=== PATIENT | female | born 1990 | race African-American/Black ===

== ENCOUNTER 2019-10-22 14:46 | Emergency (ER) | payer OTHER, SELFPAY ==
[2019-10-22 14:50] VITALS: BP 154/73; PULSE 92; RESP 16; TEMP 37.1; O2SAT 100
--- NOTE | 2019-10-22 15:30 | ED.GENADULT ---
HPI - General Adult General Chief complaint: Recheck/Abnormal Lab/Rx Stated complaint: weakness/dizziness Time Seen by Provider: 10/22/19 15:11 Source: patient History of Present Illness HPI narrative: Patient referred to our emergency room from [facility] because of vaginal bleeding for the last 12 months after having Depo shot 1 year ago. Patient reported having a break without vaginal bleeding which was May and June. Patient reported bleeding every day. Fresh red bright blood sometime with blood clots, lately been feeling tired and weak. Patient called the [facility] today tell them that SHE IS week and was told to go to the emergency room right away Related Data Home Medications Medication Instructions Recorded Confirmed meloxicam 10/22/19 Allergies Allergy/AdvReac Type Severity Reaction Status Date / Time Sulfa (Sulfonamide Allergy Severe Swelling Verified 10/22/19 15:19 Antibiotics) Coconut Allergy Severe Dyspnea / Uncoded 10/22/19 15:19 SOB Review of Systems Review of Systems: Narrative: CONSTITUTIONAL: Denies fever, chills, or sweats. EYES: Denies visual changes, redness, or discharge. ENT: Denies rhinorrhea, congestion, sore throat, or otalgia. CARDIOVASCULAR: Denies chest pain, palpitations, or edema. RESPIRATORY: Denies cough or dyspnea. GASTROINTESTINAL: Denies abdominal pain, nausea, vomiting, or diarrhea. GENITOURINARY: Denies dysuria or hematuria. SKIN: Denies rash or itching. MUSCULOSKELETAL: Denies back pain, joint pain, or myalgia. NEUROLOGIC: Denies headache, numbness, or weakness. PSYCHIATRIC: Denies anxiety or depression. [facility] Social History Social History Gender identity (if verbalized by the patient): Female Exam Narrative: Exam Narrative: General appearance: Well-developed, well-nourished Skin: Normal color Head: Normocephalic, nontraumatic Eyes: Clear conjunctiva ENT: Oropharynx normal, ears normal, nose normal Neck: Supple, nontender Chest and respiratory: Airway patent, no respiratory distress, no accessory muscle use Heart: Regular rate/rhythm Abdomen: Soft, nontender, no organomegaly, quiet bowel sounds Vascular: Normal peripheral pulses, normal capillary refill. Musculoskeletal: Normal range of motion, nontender back Neurologic: Alert and oriented ?3, [employer] is normal as tested, no gross motor deficit Course Course Emergency Course: Stable Reevaluation(s) Reevaluation #1: Patient feeling okay, denying any symptoms. Patient hemoglobin on December 2018 was 12.5, hemoglobin today is 12.9. No orthostatic hypotension, patient is okay to go home to follow-up with the [facility] [place] for further evaluation. Date: 10/22/19 Time: 17:32 Consultations Consultation #1: DR RONDON. IS okay patient can go home Date: 10/22/19 Time: 17:32 Vital Signs Vital signs: Vital Signs Temperature 37.1 C 10/22/19 14:50 Pulse Rate 92 10/22/19 14:50 Respiratory Rate 16 10/22/19 14:50 Blood Pressure 154/73 H 10/22/19 14:50 Pulse Oximetry 100 10/22/19 14:50 Temperature 37.1 C 10/22/19 14:50 Pulse Rate 72 10/22/19 15:51 Respiratory Rate 16 10/22/19 14:50 Blood Pressure 142/84 H 10/22/19 15:51 Pulse Oximetry 100 10/22/19 14:50 Medical Decision Making MDM Narrative Medical decision making narrative: Dysfunctional uterine bleeding, anemia are my concern. Labs, IV fluid, orthostatic blood pressure. Further plan to follow Vital Signs Vital Signs: Vital Signs Temperature 37.1 C 10/22/19 14:50 Pulse Rate 92 10/22/19 14:50 Respiratory Rate 16 10/22/19 14:50 Blood Pressure 154/73
[2019-10-22 15:50] LABS: Basophils Absolute Auto 0.1 K/mm3 (0.0-0.1); Basophils Percent Auto 0.8 % (0.2-1.2); Eosinophils Absolute Auto 0.2 K/mm3 (0-0.3); Eosinophils Percent Auto 1.7 % (0-4.4); Hematocrit 41.2 % (37.0-47.0); Hemoglobin 12.9 g/dL (12.0-15.0); Immature Granulocyte Absolute 0.03 K/mm3 (0.00-0.031); Immature Granulocyte Percent A 0.3 % (0-0.5); Lymphocytes Absolute Auto 2.42 K/mm3 (0.9-3.2); Lymphocytes Percent Auto 26.6 % (18.3-44.2); Mean Corpuscular HGB Conc 31.3 g/dl (32-36); Mean Corpuscular Hemoglobin 21.9 pg (26-34); Mean Corpuscular Volume 70.1 fl (80-100); Mean Platelet Volume 8.9 fl (7.4-10.4); Monocytes Absolute Auto 0.5 K/mm3 (0.1-0.6); Monocytes Percent Auto 5.2 % (2.6-8.5); Neutrophils Percent Auto 65.4 % (45.5-73.1); Platelet Count Result 389 k/mm3 (150-375); Red Blood Count 5.88 M/mm3 (4.2-5.4); Red Cell Distribution Width 15.4 % (11.5-14.5); White Blood Count 9.1 K/mm3 (4.5-10.0)
[2019-10-22 15:51] VITALS: BP 133/92; BP 137/88; BP 142/84; PULSE 72
[2019-10-22 16:09] LABS: Alanine Aminotransferase 18 U/L (4-35); Albumin Level 4.4 g/dL (3.5-5.1); Alkaline Phosphatase 93 U/L (38-126); Aspartate Amino Transferase 23 U/L (14-36); Bilirubin,Total 0.5 mg/dL (0.2-1.3); Blood Urea Nitrogen 10 mg/dL (7-17); Calcium 9.3 mg/dL (8.4-10.2); Carbon Dioxide 23 mmol/L (22-30); Chloride 108 mmol/L (98-107); Estimated CRCL calculation 125 ml/min; Estimated Glomerular Filt Rate > 60; Glucose 102 mg/dL (65-105); Potassium 3.9 mmol/L (3.4-5.0); Sodium 138 mmol/L (137-145)
== END 2019-10-22 17:45 | disposition home or self-care (01) ==
PROVIDERS: Emergency Provider Emergency Medicine; PCP Nurse Practitioner Family
DX: N93.8 Other specified abnormal uterine and vaginal bleeding (principal)
CPT/HCPCS: 36415; 80053; 85025; 86850; 86900; 86901; 99283

== ENCOUNTER 2021-04-16 17:55 | Emergency (ER) | payer OTHER, SELFPAY ==
[2021-04-16 18:16] VITALS: BP 109/69; PULSE 73; RESP 18; TEMP 37.2; O2SAT 100
--- NOTE | 2021-04-16 18:17 | ED.FEMALEGU ---
HPI - Female Genitourinary General Chief complaint: Vaginal Bleeding Stated complaint: Bleeding/pain Time Seen by Provider: 04/16/21 18:18 Source: patient, RN notes reviewed and old records reviewed Mode of arrival: ambulatory Limitations: no limitations History of Present Illness HPI Narrative: 31-year-old female presents to the [facility] after having multiple positive test and now started with bright red heavy bleeding since yesterday. States her last menstrual period was 12 March 2021. Patient reports severe right lower quadrant pain and having trouble walking upright. Denies nausea or vomiting. Denies chest pain Related Data Home Medications Medication Instructions Recorded Confirmed No Home Medications 04/16/21 04/16/21 Allergies Allergy/AdvReac Type Severity Reaction Status Date / Time Sulfa (Sulfonamide Allergy Severe Swelling Verified 04/16/21 18:22 Antibiotics) Coconut Allergy Severe Dyspnea / Uncoded 04/16/21 18:22 SOB Review of Systems Review of Systems: All systems reviewed & are unremarkable except as noted in HPI and below Constitutional: Constitutional: Reports no additional constitutional complaints, Denies chills and Denies fatigue Eyes: Eyes: Reports no additional eye complaints ENT: Reports system reviewed and no additional complaints, except as documented and Denies sore throat Cardiovascular: Cardiovascular: Reports no additional cardiovascular complaints and Denies chest pain Respiratory: Respiratory: Reports no additional respiratory complaints, Denies cough, Denies dyspnea and Denies wheezing Gastrointestinal: Gastrointestinal: Reports as per HPI, Reports abdominal pain (Right lower quadrant), Denies nausea and Denies vomiting Genitourinary: Genitourinary: Reports as per HPI and Reports abnormal vaginal bleeding Musculoskeletal: Musculoskeletal: Reports no additional musculoskeletal complaints and Denies back pain Integumentary/Breasts: Skin/Breast: Reports system reviewed and no additional complaints, except as docu Neurologic: Reports system reviewed and no additional complaints, except as documented Psychiatric: Psychiatric: Reports no additional psychiatric complaints Allergic/Immunologic: Allergic/Immunologic: Reports no additional allergic/immunologic complaints PMFSH Past Medical History Medical History (Updated 04/16/21 @ 18:27 by Farideh Henry) Patient denies medical problems Surgical History Surgical History (Updated 04/16/21 @ 18:24 by Farideh Henry) No pertinent past surgical history Social History Social History Gender identity (if verbalized by the patient): Female Comments At the time of my signature, I reviewed and agree with the nursing past medical, surgical, social, and family history. There is no relevant family history pertinent to the patient complaint. Exam Const: General: healthy appearing, no acute distress and alert Nutritional Appearance: well nourished and obese Orientation/consciousness: patient oriented x3 Limitations: no limitations HENMT: Head: normal to inspection Eyes: Pupils: Equal, round and reactive pupils present Neck: Neck: normal visual inspection and no lymphadenopathy Chest: Chest palpation & inspection: normal inspection of the chest Resp: Effort & Inspection: normal respiratory effort Cardio: Rate: regular rate GI: GI Palp: Yes Soft to palpation and Yes Tenderness to palpation present (GI) (Right lower quadrant) : General: Yes no CVA tenderness Back/Spine/Pelvis: Back: no CVA tenderness Skin: General skin exam: normal color Rashes: no rashes Wounds: no wounds Neuro: General: patient oriented x3, moves all extremities, no meningeal signs and no focal motor deficits Speech: normal speech Gait exam (Neuro): Normal gait present Extrem: General: normal to inspection Psych: Mental Status: mental status grossly normal A
== END 2021-04-16 18:26 | disposition short-term general hospital (02) ==
PROVIDERS: Emergency Provider Nurse Practitioner
DX: O26.899 Other specified pregnancy related conditions, unspecified trimester (principal); Z3A.00 Weeks of gestation of pregnancy not specified; R10.31 Right lower quadrant pain
CPT/HCPCS: 99212; G0463

== ENCOUNTER 2021-04-16 18:42 | Emergency (ER) | payer OTHER, SELFPAY ==
--- NOTE | ~2021-04-16 | US_ITS ---
EXAMINATION: US OB <=14 wk fetus w TV EXAM DATE: 04/16/2021 20:57 INDICATION: Bleeding, , r/o ectopic. Vaginal bleeding. 1st trimester. TECHNIQUE: Pelvic obstetrical transabdominal sonogram was performed by a technologist. There are mu ltiple grayscale and Doppler images available for interpretation. 03/20/15 FINDINGS: Uterus measures 11.5 x 8.1 x 7.4 cm, is unremarkable, without intrauterine gestation sac i dentified. Endometrial stripe measures 12 mm, within normal limits. There is no free pelvic fluid. Right adnexa: The ovary measures 3.4 x 2.7 x 2.1 cm, with complex cystic area measuring 6 x 1.0 x 0.7 cm, without surrounding hypervascularity, pole or yolk sac identified. Could be the corpus lut eal cyst. Early intrauterine or recent spontaneous are common causes of elevated b eta hCG in absence of intrauterine confirmation. Ultrasound can sometimes identify, but ne betzy exclude an ectopic in the setting of positive beta hCG. Ovarian vascular flow confirme d. Left adnexa: The ovary measures 2.8 x 1.3 cm and is morphologically normal. Ovarian vascular flow con firmed. IMPRESSION: No intrauterine or extrauterine identified. Complex cystic right ovarian lesion , favor corpus luteal cyst over ectopic or other histology. Follow up as warranted clinica lly with serial beta hCG levels or ultrasound. Reviewed, dictated and finalized at location G. [facility] IMPRESSION: No intrauterine or extrauterine identified. Complex cysti c right ovarian lesion, favor corpus luteal cyst over ectopic or othe r histology. Follow up as warranted clinically with serial beta hCG levels or ultrasound.
[2021-04-16 19:13] VITALS: BP 153/79; PULSE 66; RESP 18; TEMP 36.6; O2SAT 100
[2021-04-16 20:04] LABS: Basophils Absolute Auto 0.1 K/mm3 (0.0-0.1); Basophils Percent Auto 0.8 % (0.2-1.2); Eosinophils Absolute Auto 0.3 K/mm3 (0-0.3); Eosinophils Percent Auto 2.3 % (0-4.4); Hematocrit 42.2 % (37.0-47.0); Hemoglobin 12.9 g/dL (12.0-15.0); Immature Granulocyte Absolute 0.05 K/mm3 (0.00-0.031); Immature Granulocyte Percent A 0.4 % (0-0.5); Lymphocytes Absolute Auto 4.23 K/mm3 (0.9-3.2); Lymphocytes Percent Auto 32.8 % (18.3-44.2); Mean Corpuscular HGB Conc 30.6 g/dl (32-36); Mean Corpuscular Hemoglobin 22.3 pg (26-34); Mean Platelet Volume 9.2 fl (7.4-10.4); Monocytes Percent Auto 7.8 % (2.6-8.5); Neutrophils Absolute Auto 7.2 K/mm3 (1.3-6.7); Neutrophils Percent Auto 55.9 % (45.5-73.1); Platelet Count Result 368 k/mm3 (150-375); Red Blood Count 5.78 M/mm3 (4.2-5.4); Red Cell Distribution Width 16.5 % (11.5-14.5); White Blood Count 12.9 K/mm3 (4.5-10.0)
--- NOTE | 2021-04-16 20:38 | ED.PREGNANCY ---
HPI - General Chief complaint: [employer]ER Stated complaint: vag bleed, 6wks preg Time Seen by Provider: 04/16/21 19:32 Source: patient Mode of arrival: ambulatory Limitations: no limitations History of Present Illness HPI Narrative: This is a 31 year old , about 5 weeks by LMP that presents to the ER for pelvic cramping and vaginal bleeding. Reports she had a positive at-home test 2 days ago. She started bleeding today. She is a positive. Her OB is Dr. Madrigal. She has not been seen or had ultrasound yet this . Denies fevers. Related Data Home Medications Medication Instructions Recorded Confirmed No Home Medications 04/16/21 04/16/21 Allergies Allergy/AdvReac Type Severity Reaction Status Date / Time Sulfa (Sulfonamide Allergy Severe Swelling Verified 04/16/21 18:22 Antibiotics) Coconut Allergy Severe Dyspnea / Uncoded 04/16/21 18:22 SOB Review of Systems Review of Systems: CONSTITUTIONAL: Denies fever GASTROINTESTINAL: Reports abdominal pain. Denies nausea, vomiting GENITOURINARY: Denies dysuria All systems reviewed & are unremarkable except as noted in HPI and below PMFSH Past Medical History Medical History (Updated 04/16/21 @ 21:45 by Lucero Olivier PA-C) Patient denies medical problems Surgical History Surgical History (Updated 04/16/21 @ 18:24 by Farideh Henry) No pertinent past surgical history Social History Social History (Updated 04/16/21 @ 20:44 by Lucero Olivier PA-C) Smoking status: Former smoker Gender identity (if verbalized by the patient): Female Exam Narrative: GENERAL: Well-appearing, well-nourished, and in no acute distress. HEAD: Normocephalic, atraumatic. EYES: EOMI. CHEST: Clear to auscultation. No respiratory distress. No wheezes rales or rhonchi HEART: Regular rate and rhythm. No murmur heard. Normal peripheral pulses. ABDOMEN: Soft, nontender, nondistended, normal active bowel sounds. EXTREMITIES: Normal range of motion. No edema. SKIN: Warm, dry, no rash. NEURO: No focal deficits. Alert and oriented x3. PSYCH: Normal mood and affect PELVIC: Small amount of bright red blood present in vaginal vault. Cervix closed Course Consultations Consultation #1: Spoke with Dr. Jin about patient and workup. Feels most likely patient is having a miscarriage. Will be given lab order for repeat quantitative beta-hCG in 48 hours. Is okay with patient taking Tylenol or ibuprofen as needed for pain Date: 04/16/21 Time: 21:43 Vital Signs Vital signs: Vital Signs Temperature 97.8 F 04/16/21 19:13 Pulse Rate 66 04/16/21 19:13 Respiratory Rate 18 04/16/21 19:13 Blood Pressure 153/79 H 04/16/21 19:13 Pulse Oximetry 100 04/16/21 19:13 Temperature 97.8 F 04/16/21 19:13 Pulse Rate 58 L 04/16/21 21:20 Respiratory Rate 17 04/16/21 21:20 Blood Pressure 147/81 H 04/16/21 21:20 Pulse Oximetry 100 04/16/21 21:20 MDM - OB/Uterine Contractions MDM Narrative Medical decision making narrative: Patient presents to the emergency department for vaginal bleeding, about 5 weeks by LMP. She is afebrile and nontoxic-appearing abdominal exam is benign. Small amount of blood noted in the vaginal vault on exam. Hemoglobin is 12.9. Patient is A positive. Ultrasound does not definitively show an intrauterine or extrauterine . Does show a complex cystic right ovarian lesion, favor corpus luteal cyst over ectopic . No free fluid in the pelvis. Normal vascular flow to the ovaries. Spoke with Dr. Jin about patient and workup. Feels most likely patient is having a miscarriage. Will be given lab order for repeat quantitative beta-hCG in 48 hours. Is okay with patient taking Tylenol or ibuprofen as needed for pain. Patient is stable and felt appropriate for further outpatient evaluation. She was given warnings to return to the ER Lab Data Attestation: I reviewed the patient's lab results. Result diagrams:
[2021-04-16 20:57] LABS: Beta HCG Quantitative 11.66 mIU/ML
--- NOTE | 2021-04-16 20:58 | PC.NURSE ---
Pt to U/S via w/c at this time.
[2021-04-16 21:20] VITALS: BP 147/81; PULSE 58; RESP 17; O2SAT 100
[2021-04-16 22:19] VITALS: BP 133/86; PULSE 17; RESP 18; O2SAT 100
== END 2021-04-16 22:21 | disposition home or self-care (01) ==
PROVIDERS: Physician Assistant; Emergency Provider Emergency Medicine; PCP Obstetrics & Gynecology
DX: O03.9 Complete or unspecified spontaneous abortion without complication (principal); Z87.891 Personal history of nicotine dependence; N83.201 Unspecified ovarian cyst, right side
CPT/HCPCS: 36415; 76801; 76817; 81025; 84702; 85025; 85461; 99284

== ENCOUNTER 2021-04-19 08:15 | Outpatient (CLI) | payer OTHER, SELFPAY ==
[2021-04-19 09:03] LABS: Beta HCG Quantitative < 2.39 mIU/ML
== END 2021-04-19 08:16 | disposition home or self-care (01) ==
LOC: ANHLAB 08:17
PROVIDERS: Visit Provider Physician Assistant
DX: O03.9 Complete or unspecified spontaneous abortion without complication (principal)
CPT/HCPCS: 36415; 84702

== ENCOUNTER 2021-07-12 08:29 | Outpatient (CLI) | payer OTHER, SELFPAY ==
--- NOTE | ~2021-07-12 | MR_ITS ---
EXAMINATION: MR thoracic spine wo con EXAM DATE: 07/12/2021 09:42 INDICATION: Tarsal Tunnel Syndrome. TECHNIQUE: Multi-sequential, multiplanar MR images of the thoracic spine were obtained without contra st. Sagittal T1, T2, T2 fat saturation, axial T2 weighted images reviewed. There is no prior study for comparison. FINDINGS: There is minimal thoracic disc disease and mild multilevel facet arthropathy. No canal or n eural foraminal stenosis. The spinal cord signal intensity and intrinsic morphology is normal. The ve rtebral bodies are aligned in the AP dimension. There are no suspicious marrow signal abnormalities. Paraspinal soft tissue is unremarkable. IMPRESSION: Minimal thoracic disc disease, mild arthropathy. Reviewed, dictated and finalized at location A.
--- NOTE | ~2021-07-12 | MR_ITS ---
EXAMINATION: MR cervical spine wo con EXAM DATE: 07/12/2021 09:42 INDICATION: Tarsal tunnel syndrome TECHNIQUE: Multi-sequential, multiplanar MR images of the cervical spine were obtained without contra st. Axial T2, axial T2 MERGE sequence. Sagittal T1, T2, T2 fat saturation images also obtained. Th ere is no prior study for comparison. FINDINGS: The spinal cord signal intensity and intrinsic morphology is normal. Cervicomedullary junc tion is normal in appearance. The vertebral bodies are aligned in the AP dimension. There are no susp icious marrow signal abnormalities. Paraspinal soft tissue is unremarkable. Level by level evaluation: C2-C3: Disc does not extend beyond the endplate margin. Uncovertebral joint arthropathy: None. Facet joint arthropathy: Mild bilateral. Neural foraminal stenosis: No stenosis. Central canal stenosis: No stenosis. C3-C4: Disc does not extend beyond the endplate margin. Uncovertebral joint arthropathy: Mild left. Facet joint arthropathy: Moderate bilateral. Neural foraminal stenosis: Mild bilateral. Central canal stenosis: No stenosis. C4-C5: Disc does not extend beyond the endplate margin. Uncovertebral joint arthropathy: Mild left. Facet joint arthropathy: Mild bilateral. Neural foraminal stenosis: No stenosis. Central canal stenosis: No stenosis. C5-C6: Disc does not extend beyond the endplate margin. Uncovertebral joint arthropathy: Mild left. Facet joint arthropathy: Minimal bilateral. Neural foraminal stenosis: No stenosis. Central canal stenosis: No stenosis. C6-C7: Disc does not extend beyond the endplate margin. Uncovertebral joint arthropathy: Mild bilateral. Facet joint arthropathy: Mild bilateral. Neural foraminal stenosis: No stenosis. Central canal stenosis: No stenosis. C7-T1: Disc does not extend beyond the endplate margin. Uncovertebral joint arthropathy: Mild left. Facet joint arthropathy: Minimal bilateral. Neural foraminal stenosis: Mild left. Central canal stenosis: No stenosis. IMPRESSION: Mild cervical spondylosis. Reviewed, dictated and finalized at location A. IMPRESSION: Mild cervical spondylosis.
--- NOTE | ~2021-07-12 | XR_ITS ---
EXAMINATION: XR ankle LT min 3V, XR foot LT min 3V DATE: 07/12/2021 08:54 INDICATION: Tarsal tunnel syndrome. Left foot fracture. TECHNIQUE: 1. Anteroposterior, mortise, additional oblique and lateral view of the left ankle were obtained. 2. Dorsoplantar, two oblique and lateral views of the left foot were obtained. COMPARISON: Left foot radiographs dated 01/03/2019 and left ankle radiographs dated 04/29/2016 FINDINGS: Alignment is normal. Chronic healed diaphyseal fracture of the left fifth metatarsal with interfragme ntary lag screw and dorsal plate and screw fixation. No acute fracture. Joint spaces are well maintai shola. No ankle joint effusion. The soft tissues are unremarkable. IMPRESSION: 1. Old healed internally fixed fifth metatarsal diaphyseal fracture. Otherwise unremarkable left foot and ankle radiographs. Reviewed, dictated and finalized at location B. IMPRESSION: 1. Old healed internally fixed fifth metatarsal diaphyseal fracture. Otherwise unremarkable left foot and ankle radiographs.
== END 2021-07-12 08:30 | disposition home or self-care (01) ==
LOC: ANHIMG 08:38
DX: G57.52 Tarsal tunnel syndrome, left lower limb (principal); M47.892 Other spondylosis, cervical region
CPT/HCPCS: 72141; 72146; 73610; 73630

== ENCOUNTER 2021-12-28 08:03 | Emergency (ER) | payer OTHER, SELFPAY ==
[2021-12-28 08:12] VITALS: BP 150/63; PULSE 62; RESP 16; TEMP 36; O2SAT 99
--- NOTE | 2021-12-28 08:13 | ED.EAR ---
HPI - Ear Problem General Chief complaint: Ear Stated complaint: ear pain Time Seen by Provider: 12/28/21 08:13 Source: patient, RN notes reviewed and old records reviewed Mode of arrival: ambulatory Limitations: no limitations History of Present Illness HPI Narrative: 31-year-old female presents to the [facility] with complaints of left ear pain and decreased hearing over the last several weeks. Has not lost hearing. Reports just irritation that has been increasing. Has been using sweet oil and Q-tips in the ear. Related Data Home Medications Medication Instructions Recorded Confirmed cyanocobalamin (vitamin B-12) 1,000 mcg subcut MONTHLY 12/28/21 12/28/21 1,000 mcg/mL injection solution (Dodex) Allergies Allergy/AdvReac Type Severity Reaction Status Date / Time Sulfa (Sulfonamide Allergy Severe Swelling Verified 12/28/21 08:14 Antibiotics) Coconut Allergy Severe Dyspnea / Uncoded 04/16/21 18:22 SOB Review of Systems Review of Systems: All systems reviewed & are unremarkable except as noted in HPI and below Constitutional: Constitutional: Reports no additional constitutional complaints, Denies chills and Denies fever(s) Eyes: Eyes: Reports no additional eye complaints ENT: Reports as per HPI Cardiovascular: Cardiovascular: Reports no additional cardiovascular complaints Respiratory: Respiratory: Reports no additional respiratory complaints Gastrointestinal: Gastrointestinal: Reports no additional gastrointestinal complaints Musculoskeletal: Musculoskeletal: Reports no additional musculoskeletal complaints Integumentary/Breasts: Skin/Breast: Reports system reviewed and no additional complaints, except as docu Neurologic: Reports system reviewed and no additional complaints, except as documented Psychiatric: Psychiatric: Reports no additional psychiatric complaints Allergic/Immunologic: Allergic/Immunologic: Reports no additional allergic/immunologic complaints [facility] Past Medical History Medical History Patient denies medical problems Surgical History Surgical History No pertinent past surgical history Social History Social History Smoking status: Former smoker Gender identity (if verbalized by the patient): Female Comments At the time of my signature, I reviewed and agree with the nursing past medical, surgical, social, and family history. There is no relevant family history pertinent to the patient complaint. Exam Const: General: healthy appearing, no acute distress and alert Nutritional Appearance: well nourished Orientation/consciousness: patient oriented x3 Limitations: no limitations HENMT: Head: normal to inspection Ears: external ears normal, TM's normal bilaterally and Abnormal EAC present erythema on the left; no edema, no EA tenderness, no foreign body and no otic discharge General nose exam: Normal external nose present Face and sinus: normal facial exam Mouth: Yes Normal oral and palatal mucosa present, Yes lip normal and Yes moist mucous membranes Teeth and gingiva: dentition normal Throat: posterior oropharynx normal and uvula midline Eyes: General: appearance normal, both eyes and all related structures Conjunctivae: conjunctivae normal Pupils: Equal, round and reactive pupils present Neck: Neck: normal visual inspection, no lymphadenopathy and no meningeal signs Chest: Chest palpation & inspection: normal inspection of the chest Resp: Effort & Inspection: normal respiratory effort and no use of accessory muscles Auscultation: clear to auscultation bilaterally, no crackles, no rales, no rhonchi and no wheezes Cardio: Rate: regular rate Rhythm: regular rhythm Back/Spine/Pelvis: Cervical Spine: normal cervical lordosis Thoracic/Lumbar Spine: thoracic and lumbar spine normal to inspe
== END 2021-12-28 08:26 | disposition home or self-care (01) ==
PROVIDERS: Emergency Provider Nurse Practitioner; PCP Physician Assistant
DX: H92.02 Otalgia, left ear (principal); Z87.891 Personal history of nicotine dependence
CPT/HCPCS: 99213; G0463

== ENCOUNTER 2022-07-08 08:00 | Emergency (ER) | payer OTHER, SELFPAY ==
--- NOTE | ~2022-07-08 | US_ITS ---
EXAMINATION: US OB <= 14 weeks fetus DATE: 07/08/2022 09:53 INDICATION: Right pelvic pain. TECHNIQUE: Real-time transabdominal and transvaginal pelvic ultrasound was performed. COMPARISON: Ultrasound 04/16/21 FINDINGS: TRANSABDOMINAL ULTRASOUND: The uterus measures 11.4 x 7.9 x 7.7 cm. TRANSVAGINAL ULTRASOUND: There is a cyst in the endometrial complex with mean diameter of 3 mm that m ay be a gestational sac with estimated gestational age of 5 weeks and 0 days +/- 3 days. No yolk sac or pole identified. The right ovary measures 3.9 x 2.6 x 3.0 cm. The left ovary measures 3.4 x 1.3 x 3.1 cm. There is trace free fluid in the pelvis. IMPRESSION: 1. Small cyst in the endometrial complex that may be a gestational sac with estimated date of delive ry of 03/10/2023. Ectopic and spontaneous are not excluded. Serial beta hCGs are re commended. Reviewed, dictated and finalized at location A. IMPRESSION: 1. Small cyst in the endometrial complex that may be a gestational sac with es timated date of delivery of 03/10/2023. Ectopic and spontaneous aborti on are not excluded. Serial beta hCGs are recommended.
[2022-07-08 08:07] VITALS: BP 145/110; PULSE 85; RESP 18; TEMP 36.5; O2SAT 99
[2022-07-08 08:43] LABS: Basophils Absolute Auto 0.1 K/mm3 (0.0-0.1); Basophils Percent Auto 0.8 % (0.2-1.2); Eosinophils Absolute Auto 0.2 K/mm3 (0-0.3); Eosinophils Percent Auto 1.9 % (0-4.4); Hematocrit 41.2 % (37.0-47.0); Hemoglobin 12.8 g/dL (12.0-15.0); Immature Granulocyte Absolute 0.04 K/mm3 (0.00-0.031); Immature Granulocyte Percent A 0.3 % (0-0.5); Lymphocytes Absolute Auto 3.64 K/mm3 (0.9-3.2); Lymphocytes Percent Auto 28.9 % (18.3-44.2); Mean Corpuscular HGB Conc 31.1 g/dl (32-36); Mean Corpuscular Hemoglobin 22.6 pg (26-34); Mean Corpuscular Volume 72.8 fl (80-100); Mean Platelet Volume 8.7 fl (7.4-10.4); Monocytes Percent Auto 7.5 % (2.6-8.5); Neutrophils Absolute Auto 7.6 K/mm3 (1.3-6.7); Neutrophils Percent Auto 60.6 % (45.5-73.1); Platelet Count Result 394 k/mm3 (150-375); Red Blood Count 5.66 M/mm3 (4.2-5.4); Red Cell Distribution Width 16.3 % (11.5-14.5); White Blood Count 12.6 K/mm3 (4.5-10.0)
[2022-07-08 09:04] LABS: Alanine Aminotransferase 20 U/L (6-35); Albumin Level 4.2 g/dL (3.5-5.1); Alkaline Phosphatase 65 U/L (38-126); Anion Gap 9 mmol/L (8-16); Aspartate Amino Transferase 22 U/L (14-36); Bilirubin,Total 0.5 mg/dL (0.2-1.3); Blood Urea Nitrogen 9 mg/dL (7-17); Calcium 8.8 mg/dL (8.4-10.2); Carbon Dioxide 20 mmol/L (22-30); Chloride 108 mmol/L (98-107); Estimated CRCL calculation 143 ml/min; Estimated Glomerular Filt Rate > 60; Glucose 104 mg/dL (65-110); Potassium 3.7 mmol/L (3.4-5.0); Sodium 137 mmol/L (137-145)
[2022-07-08] MEDS: ACETAMINOPHEN 325 MG TABLET 650 MG PO (09:09)
[2022-07-08 09:16] LABS: Appearance Urine Cloudy (Clear); Bacteria Urine 3+ /hpf; Bilirubin Urine Negative (Negative); Blood Urine Negative (Negative); Color Urine Yellow (Yellow); Glucose Urine UA Negative (Negative); Ketones Urine Trace mg/dL (Negative); Leukocyte Esterase Ur Negative LEU/UL (Negative); Nitrate Urine Negative (Negative); Protein Urine Negative (Negative); RBC Urine 0-2 /hpf (0-2); Squamous Epithelial Cell Urine Many /hpf (Few); Urobilinogen Urine 0.2 mg/dL (<2.0); WBC Urine 0-5 /hpf
[2022-07-08 09:30] LABS: Add Urine Microscopic? YES
--- NOTE | 2022-07-08 10:14 | ED.ABDPAIN ---
HPI - Abdominal Pain General Chief Complaint: Abdominal Pain Stated Complaint: left upper arm pain Time Seen by Provider: 07/08/22 08:02 History of Present Illness HPI narrative: Patient is a 32-year-old female who presents ER with lower abdominal pain. Reports she discovered she was 1 week ago. She thinks she is 6 weeks along in gestation. She sees Dr. Madrigal at the [facility]. She has not scheduled to follow-up her ultrasound yet. She reports she had some spotting last week. Pain is increased and is in the inguinal crease in the low pelvis. No radiation to the back. No urinary frequency urgency or dysuria. No vaginal bleeding or discharge at this time. Patient also reporting some cramping in the left bicep that is worse with flexion and extension. No arm swelling. No chest pain or shortness of breath. Related Data Home Medications Medication Instructions Recorded Confirmed cyanocobalamin (vitamin B-12) 1,000 mcg subcut MONTHLY 12/28/21 12/28/21 1,000 mcg/mL injection solution (Dodex) Allergies Allergy/AdvReac Type Severity Reaction Status Date / Time coconut Allergy Severe Dyspnea/ Verified 07/08/22 08:28 SOB/THROAT SWELLING/HIVES Sulfa (Sulfonamide Allergy Severe Swelling Verified 07/08/22 08:28 Antibiotics) of Lip/Tongue/Throat Review of Systems Review of Systems: All systems reviewed & are unremarkable except as noted in HPI and below Constitutional: Constitutional: Denies chills, Denies fatigue and Denies fever(s) Cardiovascular: Cardiovascular: Denies chest pain, Denies rapid heart rate and Denies radiating jaw, neck or arm pain Respiratory: Respiratory: Denies cough and Denies dyspnea Gastrointestinal: Gastrointestinal: Reports abdominal pain, Denies nausea and Denies vomiting Genitourinary: Genitourinary: Reports abnormal vaginal bleeding (last week), Denies dysuria and Denies flank pain PMFSH Past Medical History Medical History Patient denies medical problems Surgical History Surgical History No pertinent past surgical history Social History Social History Smoking status: Former smoker Gender identity (if verbalized by the patient): Female Exam Narrative: GENERAL: Well-appearing, well-nourished, and in no acute distress. HEAD: Normocephalic, atraumatic. NECK: Supple. CHEST: Clear to auscultation. No respiratory distress. HEART: Regular rate and rhythm. Normal peripheral pulses. ABDOMEN: Soft, tender palpation right lower quadrant suprapubic region, nondistended.. EXTREMITIES: Mild tenderness over the short head of the biceps brachii on the left arm. No palpable spasm. No bruising or swelling. Normal range of motion/strength. Right upper extremity and bilateral lower extremities unremarkable. SKIN: Warm, dry, no rash. NEURO: Alert and oriented x3. PSYCH: Normal mood and affect. Course Course Emergency Course: Discussed case with the patient including imaging and lab findings. Discussed also with patient's OB Dr. Madrigal. Recommends follow-up beta-hCG on 07/11/2022 in the morning and then he will follow her up in the afternoon in clinic. Patient aware of this plan. No bleeding here. Discharge home with antibiotic as given bacteria in urine. Vital Signs Vital signs: Vital Signs Temperature 97.7 F 07/08/22 08:07 Pulse Rate 85 07/08/22 08:07 Respiratory Rate 18 07/08/22 08:07 Blood Pressure 145/110 H 07/08/22 08:07 Pulse Oximetry 99 07/08/22 08:07 Oxygen Delivery Room Air 07/08/22 08:07 Temperature 97.7 F 07/08/22 08:07 Pulse Rate 85 07/08/22 08:07 Respiratory Rate 18 07/08/22 08:07 Blood Pressure 145/110 H 07/08/22 08:07 Pulse Oximetry 99 07/08/22 08:07 Oxygen Delivery Room Air 07/08/22 08:07 MDM - Abdominal Pain La
[2022-07-08 11:24] VITALS: BP 130/90; PULSE 85; RESP 18; O2SAT 99
== END 2022-07-08 11:25 | disposition home or self-care (01) ==
PROVIDERS: Emergency Provider Emergency Medicine; PCP Obstetrics & Gynecology
DX: O20.0 Threatened abortion (principal); Z3A.01 Less than 8 weeks gestation of pregnancy
CPT/HCPCS: 36415; 76801; 80053; 81001; 84702; 85025; 85461; 86850; 86900; 86901; 99284; A9270

== ENCOUNTER 2022-07-11 07:52 | Outpatient (CLI) | payer OTHER, SELFPAY | END 2022-07-11 07:53 | disposition home or self-care (01) | LOC: ANHLAB 07:53 | PROVIDERS: PCP Obstetrics & Gynecology; Visit Provider Emergency Medicine | DX: O20.0 Threatened abortion (principal); Z3A.00 Weeks of gestation of pregnancy not specified | CPT/HCPCS: 36415; 84702 ==

== ENCOUNTER 2022-09-13 18:27 | Emergency (ER) | payer OTHER, SELFPAY ==
[2022-09-13 18:32] VITALS: BP 146/76; PULSE 78; RESP 16; TEMP 36.4; O2SAT 97
--- NOTE | 2022-09-13 19:20 | PC.NURSE ---
Assumed care of pt. at this time report from HERLINDA Parker
--- NOTE | 2022-09-13 19:27 | ED.GENADULT ---
HPI - General Adult General Chief complaint: Unspecified Stated complaint: 14 wks preg, right abd pain Time Seen by Provider: 09/13/22 19:00 History of Present Illness HPI narrative: This is a @ approx 13 weeks 32-year-old female presenting ED with chief complaint of a lump in her groin. Patient has a small palpable lump on the right side of her scar. was performed years ago. the lump is only painful when the patient pushes on it. There are no overlying skin changes. No systemic signs of illness such as fever chills nausea vomiting diarrhea. Patient has no OBGYN complaints today. Related Data Home Medications Medication Instructions Recorded Confirmed cyanocobalamin (vitamin B-12) 1,000 mcg subcut MONTHLY 12/28/21 12/28/21 1,000 mcg/mL injection solution (Dodex) Allergies Allergy/AdvReac Type Severity Reaction Status Date / Time coconut Allergy Severe Dyspnea/ Verified 07/08/22 08:28 SOB/THROAT SWELLING/HIVES Sulfa (Sulfonamide Allergy Severe Swelling Verified 07/08/22 08:28 Antibiotics) of Lip/Tongue/Throat PMFSH Past Medical History Medical History Patient denies medical problems Surgical History Surgical History No pertinent past surgical history Social History Social History Smoking status: Former smoker Gender identity (if verbalized by the patient): Female Exam Narrative: APPEARANCE: No apparent distress. Head: atraumatic. EYES: EOMI, NOSE: Atraumatic NECK: Trachea midline RESPIRATORY: No increased rate of breathing CARDIOVASCULAR: RRR, ABDOMINAL: on the right-side of the patient's scar there is a small palpable lump. Point of care ultrasound showed a hypoechoic structure without any inflammatory changes. 1 x 1 cm MUSCULOSKELETAl: No obvious deformities NEURO: Alert. Moving 4/4 extremities SKIN:: Warm, dry. Normal color PSYCHIATRIC: Normal affect Course Vital Signs Vital signs: Vital Signs Temperature 97.6 F 09/13/22 18:32 Pulse Rate 78 09/13/22 18:32 Respiratory Rate 16 09/13/22 18:32 Blood Pressure 146/76 H 09/13/22 18:32 Pulse Oximetry 97 09/13/22 18:32 Oxygen Delivery Room Air 09/13/22 18:32 Temperature 97.6 F 09/13/22 18:32 Pulse Rate 78 09/13/22 18:32 Respiratory Rate 16 09/13/22 18:32 Blood Pressure 146/76 H 09/13/22 18:32 Pulse Oximetry 97 09/13/22 18:32 Oxygen Delivery Room Air 09/13/22 18:32 Procedures Abscess I/D abdomen: Date of Incision: 09/13/22 Side (if applicable): right Local Anesthetic: lidocaine 1% Amount of anesthesia used (mL): 3 Technique: incised with #11 blade and probed loculations Amount of fluid expressed (mL): 1 Irrigation: No Packing used?: none I&D Results: Other (serous fluid) Medical Decision Making MDM Narrative Medical decision making narrative: -Presentation: 32-year-old female presenting with lump inside of her scar. Point of care ultrasound showed a 1 cm x 1 cm hypoechoic mass with inflammatory changes. 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 She lives with her 2 children and her boyfriend -External Chart Review: none -Hx from independent Sources: none -Discussion of Management/Consultants: none -Independent interpretation of studies: none Dx tests considered but not ordered: none -Procedures: I&D -Interventions: none -Shared decision making / Disposition: After discussing the ultrasound findings the patient elected to have an incision and drainage. This was performed and 1 cc of serous fluid was expressed. No evidence of ab
== END 2022-09-13 19:35 | disposition home or self-care (01) ==
PROVIDERS: Emergency Provider Emergency Medicine; PCP Obstetrics & Gynecology
DX: O26.891 Other specified pregnancy related conditions, first trimester (principal); O90.2 Hematoma of obstetric wound; Z87.891 Personal history of nicotine dependence; Z3A.13 13 weeks gestation of pregnancy
CPT/HCPCS: 10060; 10140; 99282

== ENCOUNTER 2022-11-07 07:40 | Observation (INO) | payer OTHER, SELFPAY ==
[2022-11-07 08:00] VITALS: BMI 42.3
--- NOTE | 2022-11-07 08:47 | PC.NURSE ---
Dr Madrigal notified of status post fall and denies bleeding or leaking. Informed of R side and hip pain. reassuring fht's for 22 weeks. OK to dc home or be evaluated further in ER at patient preference.
[2022-11-07 09:02] VITALS: BP 121/51; PULSE 76
--- NOTE | 2022-11-07 09:02 | PC.NURSE ---
Discharge instructions reviewed with patient. Patient was offered to be taken to ER for further eval, patient declining ER evaluation at this time.
--- NOTE | 2022-11-27 18:59 | PM.OBTRLD ---
OB - Triage/Final Diagnosis Visit Information Comments/Additional reasons for admission: I have assessed the risk for this patient, Tianna Barragan, and determined that she would benefit from observation care. Final Diagnosis (1) Fall: Code(s): W19.XXXA - Unspecified fall, initial encounter Status: Acute
== END 2022-11-07 09:07 | disposition home or self-care (01) ==
PROVIDERS: Admitting Provider Obstetrics & Gynecology; PCP Physician Assistant; Visit Provider Obstetrics & Gynecology
DX: Z04.3 Encounter for examination and observation following other accident (principal)
CPT/HCPCS: G0378; G0379

== ENCOUNTER 2023-02-16 10:01 | Outpatient (CLI) | payer OTHER, SELFPAY ==
[2023-02-16 10:13] VITALS: BP 111/84; PULSE 94
[2023-02-16 10:31] VITALS: BP 116/65; PULSE 98
[2023-02-16 10:37] LABS: Basophils Percent Auto 0.3 % (0.2-1.2); Eosinophils Absolute Auto 0.1 K/mm3 (0-0.3); Eosinophils Percent Auto 1.2 % (0-4.4); Hematocrit 38.7 % (37.0-47.0); Immature Granulocyte Absolute 0.04 K/mm3 (0.00-0.031); Immature Granulocyte Percent A 0.4 % (0-0.5); Lymphocytes Percent Auto 19.8 % (18.3-44.2); Mean Corpuscular Hemoglobin 22.3 pg (26-34); Mean Corpuscular Volume 71.9 fl (80-100); Mean Platelet Volume 9.3 fl (7.4-10.4); Monocytes Absolute Auto 0.8 K/mm3 (0.1-0.6); Monocytes Percent Auto 8.7 % (2.6-8.5); Neutrophils Absolute Auto 6.3 K/mm3 (1.3-6.7); Neutrophils Percent Auto 69.6 % (45.5-73.1); Platelet Count Result 321 k/mm3 (150-375); Red Blood Count 5.38 M/mm3 (4.2-5.4); Red Cell Distribution Width 15.2 % (11.5-14.5); White Blood Count 9.1 K/mm3 (4.5-10.0)
[2023-02-16 10:46] VITALS: BP 130/66; PULSE 103
[2023-02-16 10:47] LABS: Alanine Aminotransferase 18 U/L (6-35); Albumin Level 3.5 g/dL (3.5-5.1); Alkaline Phosphatase 88 U/L (38-126); Anion Gap 7 mmol/L (8-16); Aspartate Amino Transferase 20 U/L (14-36); Bilirubin,Total 0.4 mg/dL (0.2-1.3); Blood Urea Nitrogen 7 mg/dL (7-17); Calcium 8.9 mg/dL (8.4-10.2); Carbon Dioxide 19 mmol/L (22-30); Chloride 108 mmol/L (98-107); Estimated Glomerular Filt Rate > 60; Glucose 85 mg/dL (65-110); Potassium 4.1 mmol/L (3.4-5.0); Sodium 134 mmol/L (137-145); Uric Acid 3.7 mg/dL (2.5-7.5)
[2023-02-16 10:52] LABS: Appearance Urine Clear (Clear); Bacteria Urine None Seen /hpf; Bilirubin Urine Negative (Negative); Blood Urine Negative (Negative); Color Urine Yellow (Yellow); Glucose Urine UA Negative (Negative); Ketones Urine Negative (Negative); Leukocyte Esterase Ur Negative LEU/UL (NEGATIVE); Nitrate Urine Negative (Negative); Non Pathogenic Casts 0-2; Protein Urine Trace mg/dL (Negative); RBC Urine 0-2 /hpf (0-2); Squamous Epithelial Cell Urine Few /hpf (Few); Urobilinogen Urine 0.2 mg/dL (<2.0); WBC Urine 0-5 /hpf (0-3)
[2023-02-16 10:52] LABS: Burr Cells 1+ (NORMAL); Ovalocytes 1+ (NORMAL); Platelet Estimate Adequate (Adequate); Schistocytes None Seen (NORMAL)
[2023-02-16 10:54] LABS: Creatinine Urine 128.7 mg/dL; Total Protein Urine Random 10 mg/dL; Ur Ttl Prot Creatinine Ratio 0.08 mg/mg (0-0.20)
[2023-02-16 11:01] VITALS: BP 125/106; PULSE 100
[2023-02-16 11:01] LABS: Add Urine Microscopic? YES
[2023-02-16 11:07] VITALS: BP 121/61; PULSE 89
[2023-02-16 11:16] VITALS: BP 111/84; PULSE 98
== END 2023-02-16 11:30 | disposition home or self-care (01) ==
LOC: ANHOBOP 10:12 → ANHOBPP 10:12
PROVIDERS: PCP Physician Assistant; Visit Provider Obstetrics & Gynecology
DX: O13.9 Gestational [pregnancy-induced] hypertension without significant proteinuria, unspecified trimester (principal); Z3A.00 Weeks of gestation of pregnancy not specified
CPT/HCPCS: 36415; 59025; 80053; 81001; 82570; 84156; 84550; 85025; 87086; 99199

== ENCOUNTER 2023-02-25 12:58 | Outpatient (CLI) | payer OTHER, SELFPAY ==
[2023-02-25 00:45] VITALS: BP 132/60; PULSE 105
== END 2023-02-25 12:59 | disposition home or self-care (01) ==
LOC: ANHOBOP 03-22 12:58
PROVIDERS: PCP Physician Assistant; Visit Provider Obstetrics & Gynecology
DX: O42.919 Preterm premature rupture of membranes, unspecified as to length of time between rupture and onset of labor, unspecified trimester (principal)
CPT/HCPCS: 59025; 84112

== ENCOUNTER 2023-02-28 08:25 | Outpatient (CLI) | payer OTHER, SELFPAY ==
[2023-02-28 09:06] LABS: Hemoglobin 11.8 g/dL (12.0-15.0); Mean Corpuscular HGB Conc 30.3 g/dl (32-36); Mean Corpuscular Hemoglobin 22.2 pg (26-34); Mean Corpuscular Volume 73.3 fl (80-100); Mean Platelet Volume 9.6 fl (7.4-10.4); Platelet Count Result 346 k/mm3 (150-375); Red Blood Count 5.32 M/mm3 (4.2-5.4); Red Cell Distribution Width 15.6 % (11.5-14.5); White Blood Count 9.2 K/mm3 (4.5-10.0)
[2023-02-28 15:45] LABS: Rapid Plasma Reagin Non-Reactive (NonReactive)
== END 2023-02-28 08:26 | disposition home or self-care (01) ==
LOC: ANHLAB 08:28
PROVIDERS: PCP Physician Assistant; Visit Provider Obstetrics & Gynecology
DX: Z34.93 Encounter for supervision of normal pregnancy, unspecified, third trimester (principal); Z3A.00 Weeks of gestation of pregnancy not specified
CPT/HCPCS: 36415; 85027; 86592; 86850; 86900; 86901

== ENCOUNTER 2023-03-01 11:25 | Inpatient (IN) | payer OTHER, SELFPAY ==
[2023-03-01] VITALS (54 sets, daily range): BP systolic 63–132; BP diastolic 25–103; PULSE 53–148; RESP 16–20; TEMP 36.1–36.8; O2SAT 94–100; BMI 44.9
--- NOTE | 2023-03-01 11:44 | LDADM ---
This patient, Tianna Barragan, was admitted to Labor/Delivery/Recovery 120 on 03/01/23 at 11:25. Plans for labor, pain management and were discussed with patient. Patient/family oriented to hospital policies and general routines including ID bracelet, bed and alarms, visiting hours, pain management, procedures, bathroom and other care routines, personal items, smoking policy, room service/diet and guest tray routines, infant security routines, and visiting hours. Patient/Family are encouraged to report perceived risks to care and to ask questions if they do not understand what they are told or what they should do. See OBIX for further documentation.
[2023-03-01] MEDS: LACTATED RINGERS 1,000 ML 125 ML IV CONT ×2 (12:07→12:50)
--- NOTE | 2023-03-01 13:09 | P.PNAN_ITS ---
Anes - Initial Pre Proc Eval Procedure: Operation Date: 03/01/23 13:30 Proposed Procedures p Repeat Section - Franklin Madrigal MD Date/Time: 03/01/23 13:09 Surgeon: Franklin Madrigal MD Pre Op Diagnosis: c/s Patient Data Age: 33 Gender: F Height: 1.7 m Weight: 130 kg Last Vital Signs Temp 36.1 C L 03/01/23 12:06 Pulse 86 03/01/23 13:05 BP 106/58 L 03/01/23 13:05 O2 Del Method Room Air 03/01/23 11:41 Allergies Allergy/AdvReac Type Severity Reaction Status Date / Time coconut Allergy Severe Dyspnea/ Verified 02/03/23 11:12 SOB/THROAT SWELLING/HIVES Sulfa (Sulfonamide Allergy Severe Swelling Verified 02/03/23 11:12 Antibiotics) of Lip/Tongue/Throat Home Medications Medication Instructions Recorded Confirmed Type aspirin 81 mg tablet 81 mg PO DAILY 02/03/23 02/03/23 History ferrous sulfate 325 mg (65 mg 325 mg PO DAILY 02/03/23 02/03/23 History iron) tablet prenat.vits,solitario,ttx-nryi-fcqbf 1 tablet PO DAILY 02/03/23 03/01/23 History Patient hx anesthesia problems: none Family hx anesthesia problems: none Results Review: All pre-operative results and documents have been reviewed as part of the pre- operative evaluation. ON LICENSE OF [facility] Past Medical History Medical History (Updated 03/01/23 @ 13:09 by Andrea Hernandez DO) Patient denies medical problems PIH ( induced hypertension) Surgical History Surgical History No pertinent past surgical history Family History Family History (Updated 02/03/23 @ 11:17 by Maren Paz RN) Grandparent Diabetes mellitus Color blind Father Diabetes mellitus Hypertension Mother Hypertension Scoliosis Sibling Depression Social History Social History Smoking status: Former smoker Tobacco type: cigarettes Second hand tobacco smoke exposure: Yes Substance use: never Lack of Transportation: No Lack of Food: Never True Current Housing: I Have Housing Concerned About Future Housing: No Difficulty Paying Gas/Electric Bills: No Difficulty Paying for Meds: No Currently Unemployed: No Education: Don't Know Difficulty w/ Childcare or Family Care: No Gender identity (if verbalized by the patient): Female Spiritual care concerns: No Anes - Eval Final PreProcedure Day of Procedure 03/01/23 13:09 Patient weight: morbidly obese Heart: regular rate and rhythm Lungs: clear to auscultation and normal air movement Airway: Mallampati scale class II Neurological: alert and oriented Last oral intake: >/= 8 hours ASA classification: III Emergent: no Anesthetic plan: proceed Anesthesia type and monitoring: regional spinal and standard monitoring Results Review: All pre-operative results and documents have been reviewed as part of the pre- operative evaluation. Informed Consent: The patient's anesthetic plan and its attendant risks and benefits were discussed with the patient/family/POA. Questions were solicited and answers provided to the satisfaction of the patient/family/POA.
--- NOTE | 2023-03-01 13:59 | PM.IMHP ---
H&P: HPI History of Present Illness Date/Time: 03/01/23 13:59 Chief Complaint: Term Narrative: this patient is a 33-year-old multiparous female at term with a previous and unwanted fertility. Reviewed form repeat delivery with bilateral salpingectomy. She understands there are risks to this major surgery. She understands the procedure well. She understands that injuries may occur that result in hospitalization, more surgery and severe illness. She understands risk of hemorrhage and infection. She denies any nausea, vomiting, fever, chills. She denies any chest pain or shortness of breath. Review of Systems Review of Systems: All systems reviewed & are unremarkable except as noted in HPI and below Constitutional: Constitutional: Denies chills, Denies fatigue, Denies fever(s) and Denies weakness Eyes: Eyes: Denies blurry vision, Denies change in vision, Denies loss of peripheral vision, Denies loss of vision, Denies other visual disturbances and Denies eye pain ENT: Denies vertigo, Denies dizziness, Denies hearing loss, Denies mouth pain, Denies nasal obstruction, Denies neck mass and Denies neck pain Cardiovascular: Cardiovascular: Denies chest pain, Denies diaphoresis, Denies syncope, Denies leg edema and Denies dyspnea Respiratory: Respiratory: Denies chest congestion, Denies cough, Denies hemoptysis, Denies dyspnea and Denies wheezing Gastrointestinal: Gastrointestinal: Denies abdominal pain, Denies constipation, Denies diarrhea, Denies nausea and Denies vomiting Genitourinary: Genitourinary: Denies hematuria, Denies change in libido, Denies nocturia, Denies genital lesions, Denies flank pain and Denies urinary urgency Musculoskeletal: Musculoskeletal: Denies abnormal gait, Denies back pain, Denies myalgias, Denies arthralgias, Denies joint swelling, Denies muscle weakness and Denies neck pain Integumentary/Breasts: Skin/Breast: Denies swelling, Denies breast pain, Denies breast mass, Denies dry skin, Denies nipple discharge, Denies unusual bruising and Denies jaundice Neurologic: Denies Neuro-related abnormal movements, Denies Abnormal speech present, Denies abnormal gait, Denies behavioral changes, Denies confusion, Denies vertigo, Denies dizziness, Denies syncope, Denies loss of vision, Denies memory loss, Denies convulsions and Denies weakness Psychiatric: Psychiatric: Denies abnormal sleep pattern, Denies behavioral changes, Denies change in libido, Denies confusion, Denies depression, Denies anhedonia and Denies memory loss Endocrine: Endocrine: Reports no additional endocrine complaints, Denies change in libido and Denies fatigue Hematologic/Lymphatic: Hematologic/Lymphatic: Reports no additional hematologic/lymphatic complaints Allergic/Immunologic: Allergic/Immunologic: Reports no additional allergic/immunologic complaints and Denies wheezing PMFSH Past Medical History Medical History (Updated 03/01/23 @ 14:01 by Franklin Madrigal MD) Patient denies medical problems PIH ( induced hypertension) Surgical History Surgical History (Updated 03/01/23 @ 14:01 by Franklin Madrigal MD) No pertinent past surgical history Family History Family History (Updated 02/03/23 @ 11:17 by Maren Paz RN) Grandparent Diabetes mellitus Color blind Father Diabetes mellitus Hypertension Mother Hypertension Scoliosis Sibling Depression Social History Social History Smoking status: Former smoker Tobacco type: cigarettes Second hand tobacco smoke exposure: Yes Substance use: never Lack of Transportation: No Lack of Food: Never True Current Housing: I Have Housing Concerned About Future Housing: No Difficulty Paying Gas/Electric Bills: No Difficulty Paying for Meds: No Currently Unemployed: No Education: Don't Know Difficulty w/ Childcare or Family Care: No Gender identity (if verbalized by th
--- NOTE | 2023-03-01 14:02 | WPDHPUPDATE1 ---
History and Physical Update Update Date/Time: 03/01/23 14:02 History and Physical has been reviewed, including an updated exam of the patient. There are NO changes in the patient's condition. Risks, benefits, and alternatives have been discussed and questions answered. Patient agrees to proceed with procedure.
[2023-03-01] MEDS: ceFAZolin 3 GM/D5W 100 ML 100 ML IVPB (14:14)
[2023-03-01] MEDS: KETOROLAC 30 MG/ML VIAL (*BKC) IV PUSH ×2 (14:51→22:05)
--- NOTE | 2023-03-01 15:30 | W.PM.PROC2 ---
Procedure Note - Detailed Date of Procedure 03/01/23 Pre-op Diagnosis Female sterilization, term , previous Post-op Diagnosis Same Procedure Performed Repeat delivery, bilateral salpingectomy. Surgeon Franklin Madrigal MD Anesthesia Spinal Findings Normal gestational maternal anatomy, average size , normal Apgars. Description of Procedure The patient was taken the operating room. She was prepped and draped in dorsal supine position with a leftward tilt. This was done after spinal anesthetic was applied. A low-transverse skin incision was made and carried down till of the fascia with the knife. The fascial incision was made with the knife. The fascial incision was extended laterally with Chamorro scissors. The fascia was tented upward superiorly and inferiorly the rectus muscles were dissected off bluntly. The rectus muscles were the midline. The preperitoneal fat and peritoneum were dissected open bluntly at the superior aspect of the rectus muscles. The peritoneal incision was extended superior and inferior with good position of bladder. The uterine incision was made with a scalpel down to the level of the amniotic cavity. The amniotic cavity was entered bluntly. The infant was delivered. The cord was clamped and cut and the infant was handed off to waiting pediatric staff. Cord bloods were obtained. The placenta was removed manually. The uterus was exteriorized. The uterus was cleared of all clots, debris and membranes. The uterus was closed in 0 Vicryl running lock fashion. An imbricating over a was placed along the incision line as well. Each fallopian tube was grasped and raised with a Vanessa. With from the underlying venous structures. The mesosalpinx between the tube and the rest the adnexa was cauterized and transected with LigaSure cautery. It was performed from the distal tube near the ovary in a stepwise fashion towards the cornua. The tube at the cornua was cauterized transected with LigaSure cautery. This was performed in a bilateral fashion. The uterus was returned to the abdomen. The gutters were cleared of all clots and debris. The fascia was closed with 0 Vicryl running fashion. The subcutaneous tissue was irrigated pinpoint bleeders were cauterized. The skin was closed with subcuticular absorbable lorenzo. The skin incision line was covered with glue. The patient tolerated the procedure well. She has taken recovery room in stable condition. Sponge lap and needle counts were correct x2. Complications No immediate complications Condition Stable Disposition PACU
[2023-03-01] MEDS: MORPHINE SULFATE INJ (*CRX) 10 MG/ML AMP 2 MG IV PUSH ×3 (15:50→17:32)
[2023-03-01] MEDS: OXYTOCIN 30 UNITS/NS 500 ML 30 UNITS/500 ML BAG 125 UNITS IV CONT (17:32)
[2023-03-01] MEDS: HYDROcodone/acetaminophen (*CRX) 5-325 MG TABLET 1 TAB PO (18:59)
--- NOTE | 2023-03-01 19:22 | OBPPTRN ---
1747 Patient transferred to post room #280 via stretcher. Support person present. Oriented to unit, room, information board, rooming in, admission packet and security measures. Patient verbalizes understanding.
[2023-03-01] MEDS: HYDROcodone/acetaminophen (*CRX) 10-325 MG TABLET 1 TAB PO (22:05)
[2023-03-01] MEDS: DEXTROSE 5%/0.45% SOD CHL 1,000 ML 125 ML IV CONT (22:05)
[2023-03-02] MEDS: diphenhydrAMINE HCl CAP 25 MG CAPSULE (04:01)
[2023-03-02] MEDS: HYDROcodone/acetaminophen (*CRX) 10-325 MG TABLET 1 TAB PO ×3 (04:20→18:45)
[2023-03-02 04:42] LABS: Basophils Percent Auto 0.3 % (0.2-1.2); Eosinophils Absolute Auto 0.2 K/mm3 (0-0.3); Eosinophils Percent Auto 1.3 % (0-4.4); Hemoglobin 9.7 g/dL (12.0-15.0); Immature Granulocyte Absolute 0.05 K/mm3 (0.00-0.031); Immature Granulocyte Percent A 0.3 % (0-0.5); Lymphocytes Absolute Auto 1.72 K/mm3 (0.9-3.2); Mean Corpuscular HGB Conc 30.3 g/dl (32-36); Mean Corpuscular Hemoglobin 22.2 pg (26-34); Mean Corpuscular Volume 73.4 fl (80-100); Mean Platelet Volume 9.4 fl (7.4-10.4); Monocytes Absolute Auto 1.3 K/mm3 (0.1-0.6); Monocytes Percent Auto 8.9 % (2.6-8.5); Neutrophils Absolute Auto 11.1 K/mm3 (1.3-6.7); Neutrophils Percent Auto 77.2 % (45.5-73.1); Platelet Count Result 286 k/mm3 (150-375); Red Blood Count 4.36 M/mm3 (4.2-5.4); Red Cell Distribution Width 14.7 % (11.5-14.5); White Blood Count 14.4 K/mm3 (4.5-10.0)
[2023-03-02 05:47] LABS: Macrocytosis 2+ (NORMAL); Microcytosis 1+ (NORMAL); Platelet Estimate Adequate (Adequate); Schistocytes None Seen (NORMAL)
[2023-03-02] MEDS: DOCUSATE SODIUM 100 MG CAPSULE PO ×2 (08:52→18:45)
[2023-03-02] MEDS: POLYSACCHARIDE IRON COMPLEX 150 MG CAPSULE PO (08:52)
[2023-03-02] MEDS: MULTIVIT/MIN/PREN/FOL AC/IRON TABLET 1 TAB PO (08:52)
[2023-03-02 08:53] VITALS: BP 113/83; PULSE 88; RESP 18; TEMP 36.6; O2SAT 98
[2023-03-02] MEDS: IBUPROFEN 600 MG TABLET PO ×2 (08:53→18:45)
--- NOTE | 2023-03-02 10:06 | WPDANLDPN2 ---
Anes-Prog Note L&D Date/Time: 03/02/23 10:06 Comfortable throughout: section Neuraxial method: spinal Epidural/Spinal procedure site: clean & non-tender Neuro status: Neuro function grossly intact. Cardiovascular status: normal Respiratory status: normal Airway patency: baseline Mental status: baseline Post-Op hydration status: normal Vital Signs: Last Vital Signs Temp 36.8 C 03/01/23 23:48 Pulse 70 03/01/23 23:48 Resp 16 03/01/23 18:57 BP 117/56 L 03/01/23 23:48 Pulse Ox 98 03/01/23 23:48 O2 Del Method Room Air 03/01/23 23:10 Pain score (VAS): 2/10 I/O: Intake & Output 03/01/23 03/02/23 03/02/23 23:59 07:59 15:59 Intake Total 500 1450 Output Total 550 1000 Balance -50 450 Post-procedural complaints: pruritis moderate, treatment effective Patient feedback: Patient satisfied with anesthetic care.
--- NOTE | 2023-03-02 10:07 | WPDANLDNPN2 ---
Anes-Prog Note L&D-Neuraxial Date/Time: 03/02/23 10:07 Neuraxial medications: intrathecal PF morphine Opiod-related complaints: pruritis moderate, treatment effective Patient feedback: Patient satisfied with post-operative pain management.
--- NOTE | 2023-03-02 10:22 | PM.OBPNVD ---
OB - PN: Subj Subjective Date/time seen: 03/02/23 10:22 Patient comments: no complaints, pain well controlled, tolerating diet and flatus present OB - PN: Obj Data Labs 03/02/23 04:04 Labs: Laboratory Results - last 24 hr 03/02/23 04:04 WBC 14.4 H RBC 4.36 Hgb 9.7 L Hct 32.0 L MCV 73.4 L MCH 22.2 L MCHC 30.3 L RDW 14.7 H Plt Count 286 MPV 9.4 Immature Gran % (Auto) 0.3 Neut % (Auto) 77.2 H Lymph % (Auto) 12.0 L [place] % (Auto) 8.9 H Eos % (Auto) 1.3 Baso % (Auto) 0.3 Lymph # (Auto) 1.72 [place] # (Auto) 1.3 H Eos # (Auto) 0.2 Baso # (Auto) 0.0 Abs Immat Gran (auto) 0.05 H Absolute Neuts (auto) 11.1 H Absolute Nucleated RBC 0.0 Nucleated RBC % 0.0 Platelet Estimate Adequate Microcytosis 1+ Macrocytosis 2+ Schistocytes None seen OB - PN A/P Plan day: 1 Comments: Post Op LTCS - no problems, routine recovery Time Spent With Patient Time: Total time spent is greater than 50% in coordination of care (as documented) at patient's floor/unit and/or counseling patient: Exam Const: General: cooperative, healthy appearing, comfortable and no acute distress Resp: Auscultation: no crackles, no rales, no rhonchi and no wheezes Cardio: Rhythm: regular rhythm Heart sounds: no click and no murmurs GI: Inspection: non-distended Auscultation: normal bowel sounds Extrem: General: normal to inspection, no pedal edema and no calf tenderness
[2023-03-02] MEDS: SIMETHICONE 80 MG TAB.CHEW PO (18:46)
[2023-03-02 19:33] VITALS: BP 150/69; PULSE 106; RESP 20; TEMP 36.9; O2SAT 100
[2023-03-03] MEDS: HYDROcodone/acetaminophen (*CRX) 5-325 MG TABLET 1 TAB PO ×2 (04:49→08:07)
[2023-03-03] MEDS: SIMETHICONE 80 MG TAB.CHEW PO ×2 (04:49→08:06)
[2023-03-03] MEDS: IBUPROFEN 600 MG TABLET PO (04:49)
[2023-03-03 08:00] VITALS: BP 126/64; PULSE 82; RESP 18; TEMP 36.7; O2SAT 99
[2023-03-03] MEDS: POLYSACCHARIDE IRON COMPLEX 150 MG CAPSULE PO (08:06)
[2023-03-03] MEDS: DOCUSATE SODIUM 100 MG CAPSULE PO (08:06)
[2023-03-03] MEDS: MULTIVIT/MIN/PREN/FOL AC/IRON TABLET 1 TAB PO (08:06)
--- NOTE | 2023-03-03 09:15 | PM.OBPNVD ---
OB - PN: Subj Subjective Date/time seen: 03/03/23 09:15 Patient comments: no complaints, pain well controlled, incisional pain, tolerating diet and flatus present OB - PN: Obj Data Labs 03/02/23 04:04 OB - PN A/P Plan day: 2 Plan: routine care Comments: POD#2 LTCS - no problems, Time Spent With Patient Time: Total time spent is greater than 50% in coordination of care (as documented) at patient's floor/unit and/or counseling patient: Exam Const: General: comfortable, no acute distress and alert Resp: Effort & Inspection: normal respiratory effort Auscultation: no crackles, no rales and no rhonchi Cardio: Rate: regular rate Heart sounds: no click, no murmurs and no rubs GI: Inspection: non-distended Auscultation: normal bowel sounds Other: Incision - CDI Extrem: General: normal to inspection, no pedal edema and no calf tenderness
--- NOTE | 2023-03-03 09:16 | PM.OBDSVD ---
DS: Admitting Diagnosis Discharge Date 03/03/23 Admitting Diagnosis term DS: Discharge Diagnosis Discharge Diagnosis (1) delivery delivered: Code(s): O82 - Encounter for delivery without indication Status: Acute OB - DS: Summary OB Procedures : None OB Procedures Intrapartum: OB Procedures: : None Peripartum Data Procedures: Procedures Operation Date: 03/01/23 13:30 Actual Procedure Side Surgeon p Repeat Section Not Applicable Franklin Madrigal MD Time Spent with Patient Time attestation: Total time spent providing and/or coordinating discharge services: DS: Data Data Completed and Pending Pending studies at discharge: Pending at discharge 03/01/23 16:16 Surgical [PTH] Routine Discharge Plan Discharge Discharging Clinician: Franklin Madrigal Patient Disposition: Home, Self-Care Activity: pelvic rest Diet: regular Patient Instructions: Antibiotic Form Stand Alone Forms: General Discharge Information Follow-up/Referrals: Franklin Madrigal MD [Physician] - Discharge Medications: New oxycodone-acetaminophen 5-325 mg tablet 1 tablet PO Q4H PRN (Reason: pain) Qty: 25 0RF Continued ferrous sulfate 325 mg (65 mg iron) Tablet 325 mg PO DAILY Adult Low Dose Aspirin 81 mg Tablet 81 mg PO DAILY #2 Tablet 1 tablet PO DAILY Date of admission: 03/01/23 11:25 Primary Care Provider: AbebeMerary Admitting Provider: Franklin Madrigal Attending physician on admission: Franklin Madrigal Condition: Stable
[2023-03-06 11:36] VITALS: BP 134/78; PULSE 69; RESP 18; TEMP 36.5; O2SAT 100
== END 2023-03-03 16:35 | disposition home or self-care (01) | DRG 539 ==
LOC: ANHLDR 11:28 → ANHOB2 18:02
PROVIDERS: Admitting Provider Obstetrics & Gynecology; PCP Physician Assistant; Visit Provider Obstetrics & Gynecology
PROC: 10D00Z1 Extraction of Products of Conception, Low, Open Approach (ICD-10-PCS; CPT 59514; principal; 2023-03-01 13:30)
DX: O34.219 Maternal care for unspecified type scar from previous cesarean delivery (principal); O13.4 Gestational [pregnancy-induced] hypertension without significant proteinuria, complicating childbirth; Z30.2 Encounter for sterilization; O99.824 Streptococcus B carrier state complicating childbirth; Z3A.38 38 weeks gestation of pregnancy; Z37.0 Single live birth; Z87.891 Personal history of nicotine dependence
CPT/HCPCS: 36415; 85025; 88302; A9270; J0690; J1885; J2270; J2274; J2371; J2405; J2590; J7120

== ENCOUNTER 2023-05-06 14:51 | Emergency (ER) | payer OTHER, SELFPAY ==
[2023-05-06 15:02] VITALS: BP 131/70; PULSE 75; RESP 16; TEMP 36.7; O2SAT 98
--- NOTE | 2023-05-06 15:22 | ED.GENADULT ---
HPI - General Adult General Chief complaint: Allergic Reaction Stated complaint: swollen throat Time Seen by Provider: 05/06/23 15:22 Source: patient, RN notes reviewed and old records reviewed Mode of arrival: ambulatory Limitations: no limitations History of Present Illness HPI narrative: 33-year-old female presents to the [facility] with concerns of feeling her tongue and throat swelling. Has been like that for over 24 hours. Reports 2 days ago she received her MMR vaccine No treatment prior to arrival states that she is currently . Onset (ago): day(s) (1-2) Treatments prior to arrival: none Related Data Home Medications Medication Instructions Recorded Confirmed aspirin 81 mg tablet 81 mg PO DAILY 02/03/23 05/06/23 ferrous sulfate 325 mg (65 mg 325 mg PO DAILY 02/03/23 05/06/23 iron) tablet prenat.vits,solitario,ads-cgfi-zvups 1 tablet PO DAILY 02/03/23 05/06/23 tretinoin 0.025 % topical cream See Rx Instructions .Route .COMPLEX 05/06/23 05/06/23 Allergies Allergy/AdvReac Type Severity Reaction Status Date / Time coconut Allergy Severe Dyspnea/ Verified 05/06/23 15:29 SOB/THROAT SWELLING/HIVES Sulfa (Sulfonamide Allergy Severe Swelling Verified 05/06/23 15:29 Antibiotics) of Lip/Tongue/Throat Review of Systems Review of Systems: All systems reviewed & are unremarkable except as noted in HPI and below Constitutional: Constitutional: Reports no additional constitutional complaints Eyes: Eyes: Reports no additional eye complaints ENT: Reports as per HPI Cardiovascular: Cardiovascular: Reports no additional cardiovascular complaints, Denies chest pain and Denies dyspnea Respiratory: Respiratory: Reports no additional respiratory complaints, Denies chest congestion, Denies cough and Denies dyspnea Gastrointestinal: Gastrointestinal: Reports no additional gastrointestinal complaints, Denies abdominal pain, Denies nausea and Denies vomiting Musculoskeletal: Musculoskeletal: Reports no additional musculoskeletal complaints Integumentary/Breasts: Skin/Breast: Reports system reviewed and no additional complaints, except as docu Neurologic: Reports system reviewed and no additional complaints, except as documented Psychiatric: Psychiatric: Reports no additional psychiatric complaints Allergic/Immunologic: Allergic/Immunologic: Reports no additional allergic/immunologic complaints PMFSH Past Medical History Medical History Patient denies medical problems PIH ( induced hypertension) Surgical History Surgical History No pertinent past surgical history Family History Family History Grandparent Diabetes mellitus Color blind Father Diabetes mellitus Hypertension Mother Hypertension Scoliosis Sibling Depression Social History Social History Smoking status: Former smoker Tobacco type: cigarettes Second hand tobacco smoke exposure: Yes Substance use: never Lack of Transportation: No Lack of Food: Never True Current Housing: I Have Housing Concerned About Future Housing: No Difficulty Paying Gas/Electric Bills: No Difficulty Paying for Meds: No Currently Unemployed: No Education: Don't Know Difficulty w/ Childcare or Family Care: No Gender identity (if verbalized by the patient): Female Spiritual care concerns: No Comments At the time of my signature, I reviewed and agree with the nursing past medical, surgical, social, and family history. There is no relevant family history pertinent to the patient complaint. Exam Const: General: cooperative, healthy appearing, comfortable, no acute distress, well developed, alert and well nourished Nutritional Appearance: well nourished Orientation/consciousness: patient
[2023-05-06] MEDS: methylPREDNISolone SOD SUCC 125 MG VIAL IM (15:49)
== END 2023-05-06 16:13 | disposition home or self-care (01) ==
PROVIDERS: Emergency Provider Nurse Practitioner; PCP Physician Assistant
DX: J02.9 Acute pharyngitis, unspecified (principal); Z87.891 Personal history of nicotine dependence
CPT/HCPCS: 87081; 87880; 96372; 99213; G0463; J2930

== ENCOUNTER 2023-09-18 19:36 | Emergency (ER) | payer OTHER, SELFPAY ==
--- NOTE | 2023-09-18 19:47 | ED.EXTPRO ---
HPI - Extremity Problem General Chief complaint: Extremity Injury, Lower Stated complaint: ankle pain Time Seen by Provider: 09/18/23 20:08 Source: patient and RN notes reviewed Mode of arrival: ambulatory Limitations: no limitations History of Present Illness HPI Narrative: 33-year-old female presents with concern for left buttock pain that is radiating down the left side of the left knee. She reports history of sciatica. Denies any injury, trauma. Reports she missed work and needs a work note. He denies loss of bowel or bladder function, perianal anesthesia, weakness in any extremity. Reports chronic left ankle pain. Patient uses the cane at baseline for her ankle pain MD Complaint: extremity pain Related Data Allergies Allergy/AdvReac Type Severity Reaction Status Date / Time coconut Allergy Severe Dyspnea/ Verified 09/18/23 19:55 SOB/THROAT SWELLING/HIVES Sulfa (Sulfonamide Allergy Severe Swelling Verified 09/18/23 19:55 Antibiotics) of Lip/Tongue/Throat Review of Systems Review of Systems: CONSTITUTIONAL: Denies malaise, chills, sweats, or fever. CARDIOVASCULAR: Denies chest pain, palpitations, or edema. RESPIRATORY: Denies cough or dyspnea. SKIN: Denies rash or itching, bruising, redness, swelling. MUSCULOSKELETAL: Reports left buttock, left knee pain NEUROLOGIC: Denies numbness, weakness All systems reviewed & are unremarkable except as noted in HPI and below PMFSH Past Medical History Medical History Patient denies medical problems PIH ( induced hypertension) Surgical History Surgical History No pertinent past surgical history Family History Family History Grandparent Diabetes mellitus Color blind Father Diabetes mellitus Hypertension Mother Hypertension Scoliosis Sibling Depression Social History Social History Smoking status: Former smoker Tobacco type: cigarettes Second hand tobacco smoke exposure: Yes Substance use: never Lack of Transportation: No Lack of Food: Never True Current Housing: I Have Housing Concerned About Future Housing: No Difficulty Paying Gas/Electric Bills: No Difficulty Paying for Meds: No Currently Unemployed: No Education: Don't Know Difficulty w/ Childcare or Family Care: No Gender identity (if verbalized by the patient): Female Spiritual care concerns: No Comments At time of signature, agree with nursing past medical, surgical, social and family history. There is no relevant family history pertinent to the presenting complaint Exam Narrative: GENERAL: Well-appearing, well-nourished, and in no acute distress. HEAD: Normocephalic, atraumatic. EYES: PERRLA and EOMI. NECK: Supple. No lymphadenopathy. CHEST: Clear to auscultation. No respiratory distress. HEART: Regular rate and rhythm. Distal pulses palpable and equal, cap refill <3 seconds ABDOMEN: Soft, nontender, nondistended, normal active bowel sounds, no palpable or pulsatile masses. No CVA tenderness MUSCULOSKELETAL: Grossly Normal range of motion and strength in all extremities; 5/5 strength knee flexion and extension, plantar flexion and extension. Normal sensation in dermatomal distributions with sensitivity to light touch and pain. No midline back tenderness to palpation. No paraspinal tenderness. Transfers from sitting to standing. SKIN: Warm, dry, no rash. No ecchymosis, erythema, open wounds to back. NEURO: No focal deficits. Alert and oriented x3. Reflexes intact. Baseline gait. PSYCH: Normal mood and affect Course Course Emergency Course: Patient is aware of diagnosis, understands and agrees to treatment plan. Anticipatory guidance given. Patient agrees to follow-up as directed and is aware of reasons to seek
[2023-09-18 19:50] VITALS: BP 138/64; PULSE 64; RESP 18; TEMP 37; O2SAT 100
== END 2023-09-18 20:22 | disposition home or self-care (01) ==
PROVIDERS: Emergency Provider Nurse Practitioner; PCP Physician Assistant
DX: M54.32 Sciatica, left side (principal); Z87.891 Personal history of nicotine dependence
CPT/HCPCS: 99213; G0463

== ENCOUNTER 2023-12-11 05:23 | Emergency (ER) | payer OTHER, SELFPAY ==
[2023-12-11] VITALS (7 sets, daily range): BP systolic 127–153; BP diastolic 55–79; PULSE 62–78; RESP 17–18; TEMP 36.6–36.9; O2SAT 98–100
--- NOTE | ~2023-12-11 | CT_ITS ---
CT of the Abdomen and Pelvis: Indication: Abdominal pain Technique: 2.5 mm axial scans were obtained through the abdomen and pelvis following intravenous adm inistration of 100 cc of Omnipaque 350. Dose reduction technique was used on this scan by utilizing a utomated exposure control and iterative reconstruction technique. The dose-length product (DLP) was 1 080.51 mGy-cm. Findings: Scans through the lung bases are unremarkable. The liver, spleen, gallbladder, adrenals and kidneys are within normal limits. Questionable minimal p eripancreatic haziness, especially at the pancreatic head. No evidence of aortic aneurysm. No lympha denopathy. No bowel obstruction or bowel wall thickening. There is no evidence to suggest acute appendicitis. Images through the pelvis were performed. Urinary bladder unremarkable. No adnexal mass seen. No asci siddharth. Impression: Suspected mild acute pancreatitis. Correlate clinically. Reviewed, dictated and finalized at [facility]. Impression: Suspected mild acute pancreatitis. Correlate clinically.
--- NOTE | ~2023-12-11 | XR_ITS ---
Portable chest x-ray Comparison: 10/05/2018 Clinical History: Epigastric pain Findings: Lungs are clear, without focal consolidation or pleural effusion. Cardiomediastinal silho uette is stable. Bones and soft tissues are unremarkable. Impression: Normal chest. Reviewed, dictated and finalized at [facility]. Impression: Normal chest.
[2023-12-11 05:44] LABS: BEDSIDEPREGUCG Negative
[2023-12-11 05:48] LABS: Alanine Aminotransferase 15 U/L (6-35); Alkaline Phosphatase 70 U/L (38-126); Anion Gap 10 mmol/L (4-12); Aspartate Amino Transferase 19 U/L (14-36); Bilirubin,Total 0.2 mg/dL (0.2-1.3); Blood Urea Nitrogen 8 mg/dL (7-17); Calcium 8.6 mg/dL (8.4-10.2); Carbon Dioxide 23 mmol/L (22-30); Chloride 104 mmol/L (98-107); Estimated CRCL calculation 170 ml/min; Estimated Glomerular Filt Rate > 60; Glucose 102 mg/dL (65-110); Lipase 916 U/L (23-300); Potassium 4.1 mmol/L (3.4-5.0); Sodium 137 mmol/L (137-145)
[2023-12-11 05:49] LABS: Bacteria Urine 1+ /hpf; Non Pathogenic Casts 0-2; RBC Urine 0-2 /hpf (0-2); Squamous Epithelial Cell Urine Few /hpf (Few); WBC Urine 0-5 /hpf (0-3)
[2023-12-11 05:50] LABS: Basophils Absolute Auto 0.1 K/mm3 (0.0-0.1); Basophils Percent Auto 0.8 % (0.2-1.2); Eosinophils Absolute Auto 0.4 K/mm3 (0-0.3); Eosinophils Percent Auto 2.8 % (0-4.4); Hematocrit 39.7 % (37.0-47.0); Hemoglobin 12.4 g/dL (12.0-15.0); Immature Granulocyte Absolute 0.05 K/mm3 (0.00-0.031); Immature Granulocyte Percent A 0.4 % (0-0.5); Lymphocytes Percent Auto 20.7 % (18.3-44.2); Mean Corpuscular HGB Conc 31.2 g/dl (32-36); Mean Corpuscular Hemoglobin 22.4 pg (26-34); Mean Corpuscular Volume 71.8 fl (80-100); Mean Platelet Volume 9.3 fl (7.4-10.4); Monocytes Percent Auto 7.6 % (2.6-8.5); Neutrophils Absolute Auto 8.8 K/mm3 (1.3-6.7); Neutrophils Percent Auto 67.7 % (45.5-73.1); Platelet Count Result 350 k/mm3 (150-375); Red Blood Count 5.53 M/mm3 (4.2-5.4); Red Cell Distribution Width 15.4 % (11.5-14.5)
[2023-12-11 05:53] LABS: Add Urine Microscopic? NO; Appearance Urine Clear (Clear); Color Urine Yellow (Yellow); pH Urine 5.5 (5.0-9.0)
[2023-12-11 05:54] LABS: Bilirubin Urine Negative (Negative); Blood Urine Negative (Negative); Glucose Urine UA Negative (Negative); Ketones Urine Negative (Negative); Leukocyte Esterase Ur Negative LEU/UL (Negative); Nitrate Urine Negative (Negative); Protein Urine Negative (Negative); Specific Grav Ur 1.025 (1.001-1.035); Urobilinogen Urine 0.2 mg/dL (<2.0)
[2023-12-11 06:13] LABS: Anisocytosis 1+; Platelet Estimate Adequate (Adequate); Schistocytes None Seen
--- NOTE | 2023-12-11 06:27 | ED.GENADULT ---
HPI - General Adult General Chief complaint: Abdominal Pain <Steven Goldman MD - Last Filed: 12/11/23 07:02> Stated complaint: abd pain <Steven Goldman MD - Last Filed: 12/11/23 07:02> Time Seen by Provider: 12/11/23 06:26 <Steven Goldamn MD - Last Filed: 12/11/23 07:02> History of Present Illness HPI narrative: This is a 33-year-old female presenting ED with chief complaint of right upper quadrant pain. the pain started 2 days ago when she woke up. Is a sharp pain in the right upper quadrant that radiates to her back. It is 10 out 10 intensity, constant. It is worse with deep breaths. Associated with some nausea but no vomiting. No association with. No fevers chills chest pain or shortness of breath. Last bowel movement was earlier today which was regular. Patient has no history of biliary colic. She is not a heavy drinker. <Steven Goldman MD - Last Filed: 12/11/23 07:02> Related Data Home medications: Home Medications Medication Instructions Recorded Confirmed metronidazole 500 mg tablet mg 12/11/23 <Steven Goldman MD - Last Filed: 12/11/23 07:02> Allergies/adverse reactions: Allergies Allergy/AdvReac Type Severity Reaction Status Date / Time coconut Allergy Severe Dyspnea/ Verified 12/11/23 05:30 SOB/THROAT SWELLING/HIVES Sulfa (Sulfonamide Allergy Severe Swelling Verified 12/11/23 05:30 Antibiotics) of Lip/Tongue/Throat <Steven Goldman MD - Last Filed: 12/11/23 07:02> [facility] Past Medical History Medical History: Medical History Patient denies medical problems PIH ( induced hypertension) <Steven Goldman MD - Last Filed: 12/11/23 07:02> Surgical History Surgical History: Surgical History No pertinent past surgical history <Steven Goldman MD - Last Filed: 12/11/23 07:02> Family History Family History: Family History Grandparent Diabetes mellitus Color blind Father Diabetes mellitus Hypertension Mother Hypertension Scoliosis Sibling Depression <Steven Goldman MD - Last Filed: 12/11/23 07:02> Social History Social History: Social History Smoking status: Former smoker Tobacco type: cigarettes Second hand tobacco smoke exposure: Yes Substance use: never Lack of Transportation: No Lack of Food: Never True Current Housing: I Have Housing Concerned About Future Housing: No Difficulty Paying Gas/Electric Bills: No Difficulty Paying for Meds: No Currently Unemployed: No Education: Don't Know Difficulty w/ Childcare or Family Care: No Gender identity (if verbalized by the patient): Female Spiritual care concerns: No <Steven Goldman MD - Last Filed: 12/11/23 07:02> Exam Narrative: APPEARANCE: No apparent distress. Head: atraumatic. EYES: EOMI, NOSE: Atraumatic NECK: Trachea midline RESPIRATORY: No increased rate of breathing CARDIOVASCULAR: RRR, ABDOMINAL: Tenderness palpation the right upper quadrant voluntary guarding, no rebound, no CVA tenderness MUSCULOSKELETAl: No obvious deformities NEURO: Alert. Moving 4/4 extremities SKIN:: Warm, dry. Normal color PSYCHIATRIC: Normal affect <Steven Goldman MD - Last Filed: 12/11/23 07:02> Course Course Emergency Course: Patient is signed out to me at 7:00 a.m.. She was pending CT abdomen pelvis as well as a right upper quadrant ultrasound. CT abdomen pelvis shows acute pancreatitis and her lipase level is slightly greater than 3 times the upper limit of normal. No apparent complications of the pancreatitis. Because it is a holiday, unable to obtain RUQ US today. Patient is reassessed at bedside. She states she is feeling better although will occasionally continue to
[2023-12-11] MEDS: SODIUM CHLORIDE 0.9% IV 2,000 ML 999 ML IV CONT (06:33)
[2023-12-11] MEDS: HYDROmorphone HCL INJ (*CRX) 1 MG/ML SYR 0.5 MG IV PUSH (06:34)
[2023-12-11] MEDS: ONDANSETRON INJ 4 MG/2 ML VIAL IV PUSH (06:34)
[2023-12-11] MEDS: KETOROLAC 15 MG/ML VIAL (*BKC) IV PUSH (06:34)
--- NOTE | 2023-12-11 06:40 | PC.NURSE ---
Patient taken to imaging at this time via stretcher.
[2023-12-11] MEDS: HYDROcodone/acetaminophen (*CRX) 5-325 MG TABLET 1 TAB PO (08:11)
== END 2023-12-11 08:17 | disposition home or self-care (01) ==
PROVIDERS: Emergency Medicine; Emergency Provider Student in an Organized Health Care Education/Training Program; PCP Physician Assistant
DX: K85.90 Acute pancreatitis without necrosis or infection, unspecified (principal); D72.829 Elevated white blood cell count, unspecified; Z87.891 Personal history of nicotine dependence
CPT/HCPCS: 36415; 71045; 74177; 80053; 81003; 81025; 83690; 85025; 96361; 96374; 96375; 99284; A9270; J1170; J1885; J2405; J7030; Q9967

== ENCOUNTER 2024-03-26 12:30 | Emergency (ER) | payer BC, SELFPAY ==
[2024-03-26 12:48] VITALS: BP 146/79; PULSE 90; RESP 18; TEMP 36.4; O2SAT 99
--- NOTE | 2024-03-26 13:00 | ED_ITS ---
HPI - Nausea/Vomiting/Diarrhea General Chief complaint: Nausea/Vomiting/Diarrhea <Danna Bowling [employer] - Last Filed: 03/26/24 13:04> Stated complaint: dizziness, N/V <Danna Bowling APRN - Last Filed: 03/26/24 13:04> Time Seen by Provider: 03/26/24 12:55 <Danna Bowling APRN - Last Filed: 03/26/24 13:04> Focused HPI: Patient is a 34-year-old female who presents to the ER with a 2 day history of nausea, vomiting, diarrhea. She reports I threw up all night. Patient reports she thought she had food poisoning, but now her son has similar symptoms. She also endorses a headache on Monday but reports that has resolved. Patient endorses a history of PCOS and an enlarged pancreas on a CT scan. She denies any fevers, cough, congestion, shortness of breath. GENERAL: Well-appearing, well-nourished, and in no acute distress. HEAD: Normocephalic, atraumatic. CHEST: Clear to auscultation. ?No respiratory distress. HEART: Regular rate and rhythm.? NEURO: ?Alert and oriented x3. ABDOMEN: Positive bowel sounds. No increased pain with palpation. Patient screened in triage and initial orders placed.? ?Additional care and disposition to be based upon?diagnostic testing and treatment. <Danna Bowling [employer] - Last Filed: 03/26/24 13:04> Related Data Home medications: Home Medications ?Medication ?Instructions ?Recorded ?Confirmed ?Last Taken ?Type metronidazole 500 mg tablet mg 12/11/23 Unknown History <Danna Bowling [employer] - Last Filed: 03/26/24 13:04> Allergies/Adverse reactions: Allergies Allergy/AdvReac Type Severity Reaction Status Date / Time Sulfa (Sulfonamide Allergy Severe Swelling Verified 03/26/24 13:16 Antibiotics) of Lip/Tongue/Throat <Danna Bowling APRN - Last Filed: 03/26/24 13:04> PMFSH Past Medical History Medical History: Medical History Patient denies medical problems PIH ( induced hypertension) <Danna Bowling APRN - Last Filed: 03/26/24 13:04> Surgical History Surgical History: Surgical History No pertinent past surgical history <Danna Bowling APRN - Last Filed: 03/26/24 13:04> Family History Family History: Family History Grandparent Diabetes mellitus Color blind Father Diabetes mellitus Hypertension Mother Hypertension Scoliosis Sibling Depression <Danna Bowling APRN - Last Filed: 03/26/24 13:04> Social History Social History: Social History Smoking status: Former smoker Tobacco type: cigarettes Second hand tobacco smoke exposure: Yes Substance use: never Lack of Transportation: No Lack of Food: Never True Current Housing: I Have Housing Concerned About Future Housing: No Difficulty Paying Gas/Electric Bills: No Difficulty Paying for Meds: No Currently Unemployed: No Education: Don't Know Difficulty w/ Childcare or Family Care: No Gender identity (if verbalized by the patient): Female Spiritual care concerns: No <Danna Bowling APRN - Last Filed: 03/26/24 13:04> Exam Narrative: APPEARANCE: No apparent distress. Head: atraumatic. TMs normal, no erythema posterior oropharynx EYES: EOMI, NOSE: Atraumatic NECK: Trachea midline RESPIRATORY: No increased rate of breathing clear to auscultation CARDIOVASCULAR: RRR, ABDOMINAL: Non-distended says. Nontender MUSCULOSKELETAl: No obvious deformities NEURO: Alert. Moving 4/4 extremities SKIN:: Warm, dry. Normal color PSYCHIATRIC: Normal affect <Steven Goldman MD - Last Filed: 03/26/24 14:37> Course Vital Signs Vital signs: Vital Signs Temperature 97.6 F 03/26/24 12:48 Pulse Rate 90 03/26/24 12:48 Respiratory Rate 18 03/26/24 12:48 Blood Pressure 146/79 H 03/26/24 12:48 Pulse Oximetry 99 03/26/24 12:48 Oxygen Delivery Room Air 03/26/24 12:48 Temperature 97.6 F 03/26/24 12:48 Pulse Rate 90 03/26/24 12:48 Respiratory Rate 18 03/26/24 12:48 Blood Pressure 146/79 H 03/26/24 12:48 Pulse Oximetry 99 03/26/24 12:48 Oxygen Delivery Room Air 03/26/24 12:48 <Danna Bowling APRN - Last Filed: 03/26/24 13:04> Vital Signs Temperature 97.6 F 03/26/24 12:48 Pulse Rate 90 03/26/24 12:48 Respiratory Rate 18 03/26/24 12:48 Blood Pressure 146/79 H 03/26/24 12:48 Pulse Oximetry 99 03/26/24 12:48 Oxygen Delivery Room Air 03/26/24 12:48 Temperature 97.6 F 03/26/24 12:48 Pulse Rate 90 03/26/24 12:48 Respiratory Rate 18 03/26/24 12:48 Blood Pressure 146/79 H 03/26/24 12:48 Pulse Oximetry 99 03/26/24 12:48 Oxygen Delivery Room Air 03/26/24 12:48 <Steven Goldman MD - Last Filed: 03/26/24 14:37> MDM - Nausea/Vomiting/Diarrhea MDM Narrative Medical decision making narrative: -Course: 34-year-old female presenting with nausea, vomiting, diarrhea x1 day. Viral swabs negative. Well-appearing, overall stable vital signs. Tolerating PO. Patient be discharged with prescription for Zofran return precautions. -DDX includes but is not limited to: Viral syndrome, food poisoning -Interventions:zofran, loperamide -Shared decision making / Disposition:discharged -RX zofran <Steven Goldman MD - Last Filed: 03/26/24 14:37> Lab Data Labs: Lab Results 03/26/24 03/26/24 Range/Units 13:19 13:23 Urine Color Yellow (Yellow) Urine Appearance Clear (Clear) Urine pH 6.5 (5.0-9.0) Ur Specific [place] 1.033 (1.001-1.035) Urine Protein Negative (Negative) mg/dL Urine Glucose (UA) Negative (Negative) mg/dL Urine Ketones Negative (Negative) mg/dL Ur Blood (Man) Negative (Negative) Urine Nitrate Negative (Negative) Urine Bilirubin Negative (Negative) Urine Urobilinogen 1.0 (<2.0) mg/dL Leukocyte Esterase Rfl Negative (Negative) FANTA/[facility] POC Urine HCG, Qual Negative (Negative) Influenza A (RT-PCR) Negative (Negative) Influenza B (RT-PCR) Negative (Negative) RSV (RT-PCR) Negative (Negative) SARS-CoV-2 RNA (RT-PCR) Negative (Negative) <Danna Bowling APRN - Last Filed: 03/26/24 13:04> Lab Results 03/26/24 03/26/24 Range/Units 13:19 13:23 Urine Color Yellow (Yellow) Urine Appearance Clear (Clear) Urine pH 6.5 (5.0-9.0) Ur Specific [place] 1.033 (1.001-1.035) Urine Protein Negative (Negative) mg/dL Urine Glucose (UA) Negative (Negative) mg/dL Urine Ketones Negative (Negative) mg/dL Ur Blood (Man) Negative (Negative) Urine Nitrate Negative (Negative) Urine Bilirubin Negative (Negative) Urine Urobilinogen 1.0 (<2.0) mg/dL Leukocyte Esterase Rfl Negative (Negative) FANTA/UL POC Urine HCG, Qual Negative (Negative) Influenza A (RT-PCR) Negative (Negative) Influenza B (RT-PCR) Negative (Negative) RSV (RT-PCR) Negative (Negative) SARS-CoV-2 RNA (RT-PCR) Negative (Negative) <Steven Goldman MD - Last Filed: 03/26/24 14:37> Discharge Plan Discharge Clinical Impression: Acute viral syndrome <Danna Bowling APRN - Last Filed: 03/26/24 13:04> Patient Disposition: Home, Self-Care <Danna Bowling APRN - Last Filed: 03/26/24 13:04> Condition: Stable <Danna Bowling APRN - Last Filed: 03/26/24 13:04> Instructions: Antibiotic Form, Acute Nausea and Vomiting (DC) <Danna Bowling APRN - Last Filed: 03/26/24 13:04> Additional Instructions: please take Zofran for nausea. Please make sure you are drinking plenty of fluids. If you develop any new or worsening symptoms he can return ED for re-evaluation. <Danna Bowling APRN - Last Filed: 03/26/24 13:04> Patient Language: [place] <Danna Bowling APRN - Last Filed: 03/26/24 13:04> Prescriptions: New ondansetron 4 mg tablet,disintegrating 4 mg PO Q8H PRN (Reason: nausea and vomiting) Qty: 30 0RF No Action metronidazole 500 mg tablet ibuprofen 600 mg tablet 600 mg PO TID PRN (Reason: pain) Qty: 30 0RF acetaminophen 500 mg capsule 1,000 mg PO Q6H PRN (Reason: pain) Qty: 30 0RF morphine 15 mg tablet 15 mg PO Q8H PRN (Reason: pain) Qty: 14 0RF <Danna Bowling APRN - Last Filed: 03/26/24 13:04> Follow-up/Referrals: Julio C,LUTHER Massey [Primary Care Provider] - <Danna Bowling APRN - Last Filed: 03/26/24 13:04>
[2024-03-26] MEDS: LOPERAMIDE HCL 2 MG CAPSULE 4 MG PO (13:16)
[2024-03-26] MEDS: ONDANSETRON HCL ODT 4 MG TABLET PO (13:17)
[2024-03-26 13:24] LABS: BEDSIDEPREGUCG Negative (Negative)
[2024-03-26 13:30] LABS: Add Urine Microscopic? NO; Appearance Urine Clear (Clear); Bilirubin Urine Negative (Negative); Blood Urine Negative (Negative); Color Urine Yellow (Yellow); Glucose Urine UA Negative (Negative); Ketones Urine Negative (Negative); Leukocyte Esterase Ur Negative LEU/UL (Negative); Nitrate Urine Negative (Negative); Protein Urine Negative (Negative); Specific Grav Ur 1.033 (1.001-1.035); pH Urine 6.5 (5.0-9.0)
[2024-03-26 14:05] LABS: Influenza A QL RT-PCR Negative (Negative); Influenza B QL RT-PCR Negative (Negative); RSV RNA, RT-PCR Negative (Negative); SARS-CoV-2 RNA PCR Negative (Negative)
[2024-03-26 14:50] VITALS: BP 141/86; PULSE 84; RESP 18; TEMP 36.8; O2SAT 99
== END 2024-03-26 14:51 | disposition home or self-care (01) ==
PROVIDERS: Registered Nurse; Emergency Provider Emergency Medicine; PCP Physician Assistant
DX: B34.9 Viral infection, unspecified (principal); Z20.822 Contact with and (suspected) exposure to COVID-19; E28.2 Polycystic ovarian syndrome; Z87.891 Personal history of nicotine dependence
CPT/HCPCS: 81003; 81025; 87637; 99283; A9270

== ENCOUNTER 2024-06-07 14:41 | Emergency (ER) | payer BC, SELFPAY ==
[2024-06-07 14:50] VITALS: BP 156/107; PULSE 92; RESP 16; TEMP 37.1; O2SAT 97
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
[2024-06-07] MEDS: ALBUTEROL SULFATE NEB 2.5 MG/3 ML INH INHALATION (15:19)
== END 2024-06-07 16:00 | disposition home or self-care (01) ==
PROVIDERS: Emergency Provider Nurse Practitioner Family; PCP Physician Assistant
DX: J20.9 Acute bronchitis, unspecified (principal); Z87.891 Personal history of nicotine dependence
CPT/HCPCS: 71046; 94640; 99213; G0463